=== PATIENT | female | born 1945 ===

== ENCOUNTER → 2017-06-15 | Outpatient (CLI) | payer OTHER ==
[~2017-06-15] VITALS: Ht 152.4 cm; Wt 83.0 kg
[~2017-06-15] MED LIST: CALCIUM500 M2; SYNTHROID50 MCG PO; VITA-C120 GM; ZETIA10 MG
== END | disposition home or self-care (01) ==
LOC: PPHC 11:32
DX: R09.81 Nasal congestion (principal); R51 Headache